=== PATIENT | male | born 1990 | race Two or more races ===

== ENCOUNTER 2019-05-29 07:28 | Day surgery (SDC) | payer OTHER ==
[2019-05-29] MEDS ORDERED: fentaNYL CITRATE/PF 100 MCG/2 ML INJ. ONE (09:46)
[2019-05-29] MEDS ORDERED: LABETALOL HCL 20 MG/4 ML SYRINGE IV ONE (09:47)
[2019-05-29] MEDS ORDERED: oxyCODONE/ACETAMINOPHEN 5/325 TABLET PO ONE (10:08)
== END 2019-05-29 11:00 | disposition home or self-care (01) ==
LOC: OPSURG 07:28
PROVIDERS: ATTEND Physical Medicine & Rehabilitation
DX: M47.812 Spondylosis without myelopathy or radiculopathy, cervical region (principal)
CPT/HCPCS: 64633; 64634; A9270; J3010

== ENCOUNTER 2019-07-03 08:00 | Day surgery (SDC) | payer OTHER ==
[2019-07-03] MEDS ORDERED: LIDOCAINE HCL 1% PF 300MG/30ML VIAL ONE (08:48)
[2019-07-03] MEDS ORDERED: MIDAZOLAM HCL 2 MG/2 ML VIAL ONE ×2 (08:48→11:07)
[2019-07-03] MEDS ORDERED: LACTATED RINGERS 1,000 ML IV.SOLN IV ONE (08:48)
[2019-07-03] MEDS ORDERED: fentaNYL CITRATE/PF 100 MCG/2 ML INJ. ONE ×2 (08:48→11:14)
[2019-07-03] MEDS ORDERED: BUPIV. HCL 0.5% (5MG/ML)/EPI. (1:200,000) PF 30 ML VIAL IJ ONE (08:48)
[2019-07-03] MEDS ORDERED: ONDANSETRON HCL/PF 4 MG/ 2ML VIAL ONE (08:48)
[2019-07-03] MEDS ORDERED: oxyCODONE/ACETAMINOPHEN 5/325 TABLET PO ONE (11:12)
== END 2019-07-03 12:00 | disposition home or self-care (01) ==
LOC: OPSURG 08:00
PROVIDERS: ATTEND Physical Medicine & Rehabilitation
DX: M47.812 Spondylosis without myelopathy or radiculopathy, cervical region (principal)
CPT/HCPCS: 64633; 64634; A9270; J2001; J2250; J2405; J3010; J7120